=== PATIENT | female | born 1965 | race Caucasian/White ===

== ENCOUNTER → 2017-10-08 | Outpatient (CLI) | payer OTHER ==
[~2017-10-08] MED LIST: CYMBALTA20 MG PO; MEDROL DOSPAK21 TAB PO; NORCO 5-325 TA1 EACH PO
== END ==
LOC: M.RAD 11:00
DX: Z12.31 Encounter for screening mammogram for malignant neoplasm of breast (principal)

== ENCOUNTER → 2018-09-16 | Outpatient (CLI) | payer OTHER | LOC: M.MRI 16:56 | DX: M47.22 Other spondylosis with radiculopathy, cervical region (principal); M48.02 Spinal stenosis, cervical region; E11.9 Type 2 diabetes mellitus without complications; E78.2 Mixed hyperlipidemia; I10 Essential (primary) hypertension; E66.3 Overweight; Z83.3 Family history of diabetes mellitus; Z87.891 Personal history of nicotine dependence; Z68.29 Body mass index [BMI] 29.0-29.9, adult; Z79.4 Long term (current) use of insulin; Z80.3 Family history of malignant neoplasm of breast ==

== ENCOUNTER → 2018-10-30 | Outpatient (CLI) | payer OTHER ==
[~2018-10-30] MED LIST changes: +FLEXERIL PO; +IBUPROFEN 800800 M1 PO
== END ==
LOC: M.PC 09:00
DX: M47.812 Spondylosis without myelopathy or radiculopathy, cervical region (principal); M50.33 Other cervical disc degeneration, cervicothoracic region; M79.602 Pain in left arm

== ENCOUNTER → 2018-11-13 | Outpatient (CLI) | payer OTHER | LOC: M.PC 03:36 | DX: M47.812 Spondylosis without myelopathy or radiculopathy, cervical region (principal); M50.322 Other cervical disc degeneration at C5-C6 level; M48.02 Spinal stenosis, cervical region; M75.42 Impingement syndrome of left shoulder; M54.81 Occipital neuralgia; M79.602 Pain in left arm ==

== ENCOUNTER → 2019-01-09 | Outpatient (CLI) | payer OTHER | LOC: M.RAD 11:28 | DX: Z12.31 Encounter for screening mammogram for malignant neoplasm of breast (principal) ==